=== PATIENT | female | born 1940 | race Caucasian/White ===

== ENCOUNTER 2021-01-16 18:55 | Emergency (ER) | payer OTHER ==
--- OUTSIDE RECORDS SUMMARY | 2021-01-16 18:57 | XMS REPORT | Continuity of Care Document ---
:1940 Author Organization [facility] t Address [address] [place] [address] Care Team Providers Name Role Phone Unavailable Unavailable Unavailable Payers Payer Name Policy Type Policy Number Effective Date Expiration Date S ource Problems This patient has no known problems. Allergies, Adverse Reactions, Alerts This patient has no known allergies or adverse reactions. Medications This patient has no known medications. Procedures This patient has no known procedures. Results This patient has no known results.
[2021-01-16] MEDS ORDERED: LIDOCAINE 1% MPF 5 ML VIAL ONE (20:28)
[2021-01-16] MEDS ORDERED: TETANUS & DIPHTHERIA TOX,ADULT 0.5 ML VIAL ONE (20:29)
[2021-01-16] MEDS ORDERED: BUPIVACAINE 0.5% PF 10 ML VIAL ONE (20:29)
--- NOTE | 2021-01-16 21:13 | RAD REPORT ---
EXAM DESCRIPTION: RAD - Tib Fib Left - 01/16/2021 8:50 pm CLINICAL HISTORY: Fall with leg laceration. COMPARISON: None. FINDINGS: No fracture is identified. There is no dislocation or periosteal reaction noted. No acute or suspicious bony finding. Soft tissue wound is present anterior mid tibia level. There is a small 2-3 mm foreign body within or on the skin surface. Additional punctate less than 1 millimeter sized radiopaque densities are prese nt potentially foreign body or skin contamination. Repeat imaging can be performed after wound cleans ing to see a foreign body persists. IMPRESSION: No acute bone or joint finding. Anterior soft tissue wound with foreign body or skin contaminants around the wound as detailed.
--- NOTE | 2021-01-16 22:53 | EDPHYS ---
Physician Documentation [facility] Name: Brandi Crowley Age: 80 yrs Sex: Female : 1940 Arrival Date: 01/16/2021 Time: 18:57 Bed 26 Private MD: ED Physician Zen Clark HPI: 01/16 21:21 This 80 yrs old Female presents to ER via Ambulatory with complaints of pm1 Laceration To Leg. 21:21 The patient has a laceration related to: slipped on rock occurred outdoors. The pm1 laceration(s) is(are) located on the left daigle. Onset: The symptoms/episode began/occurred just prior to arrival. Associated signs and symptoms: Pertinent negatives: deformity, heavy bleeding, numbness distal to injury, suspected foreign body. The patient has experienced a previous episode, on right daigle. The patient has not recently seen a physician. Historical: - Allergies: 19:11 No Known Allergies; ss - Home Meds: 19:11 clonidine HCl 0.2 mg Oral tab 1 tab 3 times per day [Active]; ss - PMHx: 19:11 Hypertension; Thyroid problem; ss - PSHx: 19:11 breast; ss - Immunization history:: Adult Immunizations up to date, Client reports having NOT received the Covid vaccine. Last tetanus immunization: up to date. - Social history:: Smoking status: Patient denies any tobacco usage or history of. Vital Signs: 19:11 BP 177 / 79; Pulse 82; Resp 17 S; Temp 98.9(TE); Pulse Ox 99% on R/A; Weight 57.15 kg ss (R); Height 4 ft. 10 in. (147.32 cm) (R); Pain 0/10; 20:00 BP 168 / 63; Pulse 80; Resp 16; Pulse Ox 100% on R/A; vg1 19:11 Body Mass Index 26.33 (57.15 kg, 147.32 cm) ss Laceration: 01/17 00:06 Wound Repair of 7cm ( 2.8in ) subcutaneous laceration to left daigle. Irregularly pm1 shaped.. Distal neuro/vascular/tendon intact. Anesthesia: Local anesthetic administered with 6 mls of Lido/Marcaine. Wound prep: Extensive cleansing with betadine with hibiclenz by pa, Wound irrigation with saline by me, Particulate matter removal of dirt by me, Wound explored extensively, Copious irrigation. Skin closed with 5 4-0 Prolene using simple sutures and sterile technique. Dressed with 4x4's. Patient tolerated well. MDM: 01/16 19:57 Patient medically screened. pm1 22:52 Counseling: I had a detailed discussion with the patient and/or guardian regarding: the pm1 historical points, exam findings, and any diagnostic results supporting the discharge/admit diagnosis, radiology results, the need for outpatient follow up. Special discussion: I discussed in detail with the patient the higher chance of wound infection based on his presenting history. 01/16 19:59 Order name: Tib Fib Left XRAY; Complete Time: 21:19 pm1 01/16 21:21 Order name: Tib Fib Left XRAY pm1 01/16 19:59 Order name: Prolene, Sutures; Complete Time: 21:11 pm1 01/16 19:59 Order name: Dressing - Wound; Complete Time: 20:09 pm1 01/16 19:59 Order name: Gloves, Sterile; Complete Time: 20:09 pm1 01/16 19:59 Order name: Setup Suture Tray; Complete Time: 20:09 pm1 Administered Medications: 21:17 Drug: Lidocaine (1 %) 5 ml Volume: 5 ml; Route: Infiltration; vg1 21:18 Drug: Bupivacaine (0.5 %) 10 ml Volume: 10 ml; Route: Infiltration; vg1 21:21 Drug: Tetanus-Diphtheria Toxoid Adult 0.5 ml {Lead Ramp Agent: [employer]. Exp: vg1 09/23/2022. Lot #: [id number]. } Route: IM; Site: left deltoid; 23:10 Follow up: Response: No adverse reaction em Disposition: 01/16/21 22:53 Discharged to Home. Impression: Laceration with foreign body, left lower leg. - Condition is Stable. - Discharge Instructions: Laceration Care, Adult. - Prescriptions for Doxycycline Hyclate 100 mg Oral Tablet - take 1 tablet by ORAL route every 12 hours; 20 tablet. - Medication Reconciliation Form, Thank You Letter, Antibiotic Education, Prescription Opioid Use form. - Follow up: Emergency Department; When: As needed; Reason: Worsening of condition. Follow up: Private Physician; When: 2 - 3 days; Reason: Recheck today's complaints, Continuance of care, Re-evaluation by your physician. - Problem is new. - Symptoms have improved. Addendum: 01/17/2021 08:13 Co-signature as Attending Physician, Zen Clark MD. p kl 14:05 Addendum: ROS: Constitutional: negative for fever, chills, and weight loss. p m1 Cardiovascular: negative for chest pain, palpitations, and edema. Respiratory: Negative for shortness of breath, cough. Back: Negative for injury and pain, Skin: positive for laceration to left daigle. Neuro: negative for headache, weakness, numbness, and tingling. Abdomen/GI: positive for abdominal pain and constipation. Negative for nausea, vomiting, and diarrhea. All other systems are negative. 14:07 Addendum: Exam: Constitutional: This is a well developed, well nourished patient who is p m1 awake, alert, and in no acute distress. Head/Face: Normocephalic, atraumatic. Neck: Supple, FROM without pain. Cardiovascular: RRR, no pulse deficits. Respiratory: Exam negative for acute changes, shortness of breath, distress. Musculoskeletal/extremity: Extremities are grossly normal except for laceration present to left daigle. Skin: appearance: normal except for injury, laceration to left daigle. 14:11 Addendum: MDM: Vital signs reviewed. 100% on RA, impression normal. p m1 Signatures: Dispatcher [employer] EDMS Zen Clark MD MD pkl Munoz, Edgar, RN RN Ashleigh Nunn, RN MANDO Papa Edgar, CELL STRIPPER CELL STRIPPER pm1 Elzbieta Joaquin, RN RN vg1 Corrections: (The following items were deleted from the chart) 01/16 19:12 19:08 Immunization history: Last tetanus immunization: up to date [facility] 21:26 21:21 Tib Fib Right+RAD.RAD.BRZ ordered. EDRI EDRI 23:10 22:53 01/16/2021 22:53 Discharged to Home. Impression: Laceration with foreign body, em left lower leg. Condition is Stable. Forms are Medication Reconciliation Form, Thank You Letter, Antibiotic Education, Prescription Opioid Use. Follow up: Emergency Department; When: As needed; Reason: Worsening of condition. Follow up: Private Physician; When: 2 - 3 days; Reason: Recheck today's complaints, Continuance of care, Re-evaluation by your physician. Problem is new. Symptoms have improved. pm1
--- NOTE | 2021-01-16 22:53 | ER ---
Nurse's Notes [facility] Name: Brandi Crowley Age: 80 yrs Sex: Female : 1940 Arrival Date: 01/16/2021 Time: 18:57 Bed 26 Private MD: Diagnosis: Laceration with foreign body, left lower leg Presentation: 01/16 19:09 Chief complaint: Patient states: "I fell at [place] on the rocks and cut my left ss leg.". Coronavirus screen: At this time, the client does not indicate any symptoms associated with coronavirus-19. Ebola Screen: Patient negative for fever greater than or equal to 101.5 degrees Fahrenheit, and additional compatible Ebola Virus Disease symptoms. Complicating Factors: There are no complicating factors for this patient. Initial Sepsis Screen: Does the patient meet any 2 criteria? No. Patient's initial sepsis screen is negative. Does the patient have a suspected source of infection? No. Patient's initial sepsis screen is negative. Risk Assessment: Do you want to hurt yourself or someone else? Patient reports no desire to harm self or others. Onset of symptoms was January 16, 2021. 19:09 Method Of Arrival: Ambulatory ss 19:09 Acuity: AMBREEN 3 ss Historical: - Allergies: 19:11 No Known Allergies; ss - Home Meds: 19:11 clonidine HCl 0.2 mg Oral tab 1 tab 3 times per day [Active]; ss - PMHx: 19:11 Hypertension; Thyroid problem; ss - PSHx: 19:11 breast; ss - Immunization history:: Adult Immunizations up to date, Client reports having NOT received the Covid vaccine. Last tetanus immunization: up to date. - Social history:: Smoking status: Patient denies any tobacco usage or history of. Screenin:59 Abuse screen: Denies threats or abuse. Nutritional screening: No deficits noted. vg1 Tuberculosis screening: No symptoms or risk factors identified. Fall Risk Fall in past 12 months (25 points). No secondary diagnosis (0 pts). No IV (0 pts). Ambulatory Aid- None/Bed Rest/Nurse Assist (0 pts). Gait- Normal/Bed Rest/Wheelchair (0 pts) Mental Status- Oriented to own ability (0 pts). Total [place]allero Fall Scale indicates Low Risk Score (25-44 pts). Fall prevention measures have been instituted. Side Rails Up X 2 Placed close to Nursing Station. Assessment: 19:58 General: Appears in no apparent distress. comfortable, Behavior is calm, cooperative. vg1 Pain: Complains of pain in left daigle Pain currently is 2 out of 10 on a pain scale. Pain began 1 hour ago. Neuro: Level of Consciousness is awake, alert, obeys commands, Oriented to person, place, time, situation. Cardiovascular: Patient's skin is warm and dry. Respiratory: Airway is patent Respiratory effort is even, unlabored. Derm: Wound noted left daigle. Musculoskeletal: Circulation, motion, and sensation intact. Injury Description: Laceration sustained to left daigle is jagged, not bleeding. 21:22 Reassessment: Patient appears in no apparent distress at this time. No changes from vg1 previously documented assessment. Patient and/or family updated on plan of care and expected duration. Pain level reassessed. Patient is alert, oriented x 3, equal unlabored respirations, skin warm/dry/pink. Vital Signs: 19:11 BP 177 / 79; Pulse 82; Resp 17 S; Temp 98.9(TE); Pulse Ox 99% on R/A; Weight 57.15 kg ss (R); Height 4 ft. 10 in. (147.32 cm) (R); Pain 0/10; 20:00 BP 168 / 63; Pulse 80; Resp 16; Pulse Ox 100% on R/A; vg1 19:11 Body Mass Index 26.33 (57.15 kg, 147.32 cm) ED Course: 18:57 Patient arrived in ED. mr 19:10 Triage completed. ss 19:13 Arm band placed on. ss 19:48 Elzbieta Joaquin, MANDO is Primary Nurse. vg1 19:54 Papa Edgar NP is PHCP. pm1 19:54 Zen Clark MD is Attending Physician. pm1 20:00 Patient has correct armband on for positive identification. Bed in low position. Call vg1 light in reach. Side rails up X 1. 20:50 Tib Fib Left XRAY In Process Unspecified. EDMS 21:48 Tib Fib Left XRAY In Process Unspecified. EDMS 22:19 Report given to MANDO Bradley. vg1 23:09 Assist provider with laceration repair on left daigle that was between 2.6 to 7.5 cm em using sutures. Set up tray. Performed by Papa Edgar TRANSCRIPTION TYPIST Dressed with 4X4s, Kerlix, Neosporin, Patient tolerated well. 23:10 Patient did not have IV access during this emergency room visit. em Administered Medications: 21:17 Drug: Lidocaine (1 %) 5 ml Volume: 5 ml; Route: Infiltration; vg1 21:18 Drug: Bupivacaine (0.5 %) 10 ml Volume: 10 ml; Route: Infiltration; vg1 21:21 Drug: Tetanus-Diphtheria Toxoid Adult 0.5 ml {Small Business Representative: [employer]. Exp: vg1 09/23/2022. Lot #: [id number]. } Route: IM; Site: left deltoid; 23:10 Follow up: Response: No adverse reaction em Outcome: 22:53 Discharge ordered by MD. pm1 23:10 Discharged to home ambulatory, with family. em 23:10 Condition: stable 23:10 Discharge instructions given to patient, family, Instructed on discharge instructions, follow up and referral plans. wound care, Demonstrated understanding of instructions, follow-up care, medications, wound care, Prescriptions given X 1. 23:10 Patient left the ED. em Signatures: Dispatcher [employer] Gerri Fisher Edgar, RN RN em Ashleigh Sparks RN RN ss Marinas, Patrick, NP TRANSCRIPTION TYPIST pm1 Elzbieta Joaquin RN RN vg1 Corrections: (The following items were deleted from the chart) 19:12 19:08 Immunization history: Last tetanus immunization: up to date [facility]
[2021-01-16 23:16] VITALS: TEMP 98.9
[2021-01-16 23:17] VITALS: BP 168/63; O2SAT 100
--- NOTE | 2021-01-17 06:50 | RAD REPORT ---
EXAM DESCRIPTION: RAD - Tib Fib Left - 01/16/2021 9:48 pm CLINICAL HISTORY: Soft tissue wound, foreign body COMPARISON: January 08 FINDINGS: Small rounded and punctate radiopaque densities are still present in the soft tissues. Art erial tree calcifications are evident in the posterior soft tissues. Near the anterior wound radiopaq ue densities are still potentially foreign bodies. Given the patient's age, chronic, nontraumatic vas cular and soft tissue calcifications are possible. Skin contaminant would be less likely if there has been cleaning of the wound. IMPRESSION: Radiopaque densities remain in the soft tissues. Etiologies unrelated to the traumatic event are detailed in the body of the report.
== END 2021-01-16 23:10 | disposition home or self-care (01) ==
LOC: ER 18:55
PROC: 0JQP0ZZ Repair Left Lower Leg Subcutaneous Tissue and Fascia, Open Approach (ICD-10-PCS; principal; 2021-01-16)
DX: S81.812A Laceration without foreign body, left lower leg, initial encounter (principal); W01.118A Fall on same level from slipping, tripping and stumbling with subsequent striking against other sharp object, initial encounter; Y93.01 Activity, walking, marching and hiking; Y92.89 Other specified places as the place of occurrence of the external cause; Z23 Encounter for immunization; E07.9 Disorder of thyroid, unspecified; I10 Essential (primary) hypertension
CPT/HCPCS: 90471; 90714; 99284